=== PATIENT | male | born 1965 | race Caucasian/White ===

== ENCOUNTER → 2018-01-06 | Outpatient (CLI) | payer OTHER, BC ==
--- NOTE | 2018-01-06 11:08 | RADIOLOGY REPORT (SQ) ---
EXAM DESCRIPTION: MRI LT LOWER JOINT WITHOUT COMPLETED DATE/TIME: 01/06/2018 9:10 am REASON FOR STUDY: OTHER INSTABILITY OF LEFT ANKLE M25.372 OTHER INSTABILITY, LEFT ANKLE COMPARISON: Limiting motion on some of the sequences. This is up to moderate. Most of the sequence s are of good diagnostic quality. TECHNIQUE: Left ankle images acquired and stored on PACS. Multiplanar images include fat sensitive s equences as T1, fluid sensitive sequences as FST2/STIR, cartilage sensitive sequences as FSPD, and gr adient echo sequences. LIMITATIONS: None. FINDINGS: BONE MARROW: Marrow edema in the anterior aspect of the talus. This involves the head of the talus and talar neck medially. Noted discrete fracture line appreciated. EFFUSIONS: Mild joint effusion. No discrete loose bodies. OSSEOUS ARTICULATIONS: Normal tibiotalar, subtalar, talonavicular and calcaneocuboid joints. TALAR DOME AND TIBIAL PLAFOND: Talar dome and tibial plafond without evidence of subchondral cysts or fracture. There is widening of the superolateral mortise. ACHILLES TENDON: Intact without partial or full-thickness tear. No adjacent bursal fluid or edema. TIBIALIS ANTERIOR TENDON: Intact without edema at the 1st MT attachment. TIBIALIS POSTERIOR TENDON: Normal morphology and no edema at the navicular attachment. No tendon brownlee th fluid. FLEXOR HALLUCIS LONGUS AND FLEXOR DIGITORUM TENDONS: Intact. PERONEUS LONGUS AND BREVIS TENDON: Mild tenosynovitis. No evidence of significant tear. ATFL, CFL, PTFL: Tibiofibular ligaments appear to be intact. Torn anterior talofibular ligament, thi ckened wavy appearance of tissue here. DELTOID LIGAMENT: Probable scar in the deep fibers from previous injury. TARSAL TUNNEL: No masses. No muscle atrophy. SINUS TARSI: No fluid. No reactive marrow edema or erosions. PLANTAR FASCIA: Slight thickening proximally. Correlate with symptoms. ADJACENT SOFT TISSUES: No suspicious mass. Possible ganglion close to the bases of the 4th and 5th m etatarsal bones. Incompletely assessed. Mild soft tissue swelling. OTHER: No other significant finding. IMPRESSION: 1. Disrupted anterior talofibular ligament with widening of the superolateral mortise. 2. Other findings as above. This includes peroneal tenosynovitis and probable ganglion along the la teral foot. TECHNICAL DOCUMENTATION: JOB ID: [id number] [employer]- All Rights Reserved Reading location - IP/workstation name: [email or web address]
== END ==
LOC: RAD 08:06
PROVIDERS: ATTEND Family Medicine
DX: M25.372 Other instability, left ankle (principal)

== ENCOUNTER → 2018-04-27 | Day surgery (SDC) | payer BC ==
--- NOTE | 2018-04-27 15:26 | RADIOLOGY REPORT (SQ) ---
EXAM DESCRIPTION: ARTHRO WRIST INJECTION; FLUORO/NEEDLE PLACEMENT COMPLETED DATE/TIME: 04/27/2018 3:16 pm REASON FOR STUDY: PAIN IN LEFT WRIST (M25.532) M25.532 PAIN IN LEFT WRIST COMPARISON: None. FLUOROSCOPY TIME: 14 seconds. 1 images saved to PACS. LIMITATIONS: None. PROCEDURE: Procedure, risks, benefits and alternatives explained to patient who then gave written co nsent. The left wrist was marked and a time-out was called for correct marking verification. Radioca rpal site marked using fluoroscopic guidance. Wrist prepped and draped using sterile technique. Loc al anesthesia achieved using 1% lidocaine injection. Hypodermic needle introduced into the joint spa ce under direct fluoroscopic visualization. Non-ionic contrast instilled to confirm intra-articular p osition. Dilute gadolinium solution then injected. Needle removed and entry site covered with steril e bandage. No immediate complications noted. TECHNIQUE: Digital images acquired during fluoroscopy and stored on PACS. Patient immediately take n to the MR suite for additional imaging. INJECTION LOCATION: Left wrist. CONTRAST TYPE AND AMOUNT: 0.5 mL Omnipaque and 2 mL Dotarem/Saline mixture. IMPRESSION: SUCCESSFUL NEEDLE PLACEMENT AND INJECTION FOR LEFT WRIST MR ARTHROGRAM. COMMENT: Quality ID #[id number]: Final reports for procedures using fluoroscopy that document radiation exp osure indices, or exposure time and number of fluorographic images (if radiation exposure indices are not available) TECHNICAL DOCUMENTATION: JOB ID: [id number] [employer]- All Rights Reserved Reading location - IP/workstation name: [email or web address]
--- NOTE | 2018-04-27 15:26 | RADIOLOGY REPORT (SQ) ---
EXAM DESCRIPTION: ARTHRO WRIST INJECTION; FLUORO/NEEDLE PLACEMENT COMPLETED DATE/TIME: 04/27/2018 3:16 pm REASON FOR STUDY: PAIN IN LEFT WRIST (M25.532) M25.532 PAIN IN LEFT WRIST COMPARISON: None. FLUOROSCOPY TIME: 14 seconds. 1 images saved to PACS. LIMITATIONS: None. PROCEDURE: Procedure, risks, benefits and alternatives explained to patient who then gave written co nsent. The left wrist was marked and a time-out was called for correct marking verification. Radioca rpal site marked using fluoroscopic guidance. Wrist prepped and draped using sterile technique. Loc al anesthesia achieved using 1% lidocaine injection. Hypodermic needle introduced into the joint spa ce under direct fluoroscopic visualization. Non-ionic contrast instilled to confirm intra-articular p osition. Dilute gadolinium solution then injected. Needle removed and entry site covered with steril e bandage. No immediate complications noted. TECHNIQUE: Digital images acquired during fluoroscopy and stored on PACS. Patient immediately take n to the MR suite for additional imaging. INJECTION LOCATION: Left wrist. CONTRAST TYPE AND AMOUNT: 0.5 mL Omnipaque and 2 mL Dotarem/Saline mixture. IMPRESSION: SUCCESSFUL NEEDLE PLACEMENT AND INJECTION FOR LEFT WRIST MR ARTHROGRAM. COMMENT: Quality ID #[id number]: Final reports for procedures using fluoroscopy that document radiation exp osure indices, or exposure time and number of fluorographic images (if radiation exposure indices are not available) TECHNICAL DOCUMENTATION: JOB ID: [id number] [employer]- All Rights Reserved Reading location - IP/workstation name: [email or web address]
--- NOTE | 2018-04-28 15:27 | RADIOLOGY REPORT (SQ) ---
EXAM DESCRIPTION: MRI LT UPPER JOINT WITH COMPLETED DATE/TIME: 04/27/2018 4:38 pm REASON FOR STUDY: PAIN IN LEFT WRIST (M25.532) M25.532 PAIN IN LEFT WRIST COMPARISON: None. TECHNIQUE: Left wrist post-arthrogram imaging includes T1 and T1 and T2 fat sat sequences. LIMITATIONS: Mildly limiting motion artifact on some of the sequences. FINDINGS: JOINT DISTENSION: Adequate. No loose bodies. BONE MARROW: Suspect mild triscaphe arthropathy, minimal subchondral edema along the distal scaphoid. CARPAL ALIGNMENT AND ARTICULATION: Normal. SCAPHOLUNATE LIGAMENT: Intact. LUNATO-TRIQUETRAL LIGAMENT: Intact. TFC COMPLEX: Thinned appearance of the central disc. No chandni contrast extravasation into the DRUJ, however. EXTRINSIC LIGAMENTS AND DISTAL RADIO-ULNAR JOINT: Intact without abnormal alignment. 1-6 EXTENSOR COMPARTMENTS: Mild tenosynovitis. Some of this may be related to dorsal approach arthro graphy. CARPAL TUNNEL AND MEDIAN NERVE: Mild edema in the carpal tunnel. Nerve and tendons look normal. OTHER: No other significant finding. IMPRESSION: 1. No carpal malalignment. 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 2. Scapholunate and meryl natocapitate ligaments look intact. There may be some partial thickness tear in the central aspect o f the TFCC. No full-thickness perforation evident here. 3. Other findings as above. Includes mild edema in the carpal tunnel. TECHNICAL DOCUMENTATION: JOB ID: [id number] [employer] All Rights Reserved Reading location - IP/workstation name: [email or web address]
== END ==
LOC: RAD 14:19
PROVIDERS: ATTEND Orthopaedic Surgery Sports Medicine
DX: M25.532 Pain in left wrist (principal); M65.9 Synovitis and tenosynovitis, unspecified; S63.592A Other specified sprain of left wrist, initial encounter; X58.XXXA Exposure to other specified factors, initial encounter; M25.432 Effusion, left wrist
CPT/HCPCS: 73222; 25246; 77002; A9576